=== PATIENT | female | born 1985 | race Caucasian/White ===

== ENCOUNTER → 2016-11-27 | Outpatient (CLI) | payer MEDICAID ==
[~2016-11-27] MED LIST: PRENATAL 1+1)(P1 TAB PO
== END | disposition disaster alternative care site (69) ==
LOC: GRAD 08:17
DX: Z34.82 Encounter for supervision of other normal pregnancy, second trimester (principal); Z3A.17 17 weeks gestation of pregnancy

== ENCOUNTER 2017-02-16 02:02 | Outpatient (CLI) | payer MEDICAID ==
[~2017-02-16] VITALS: Ht 175.3 cm; Wt 78.2 kg
--- NOTE | ~2017-02-16 | PN ---
PATIENT'S NAME: RICKY CASE [facility] AGE: 31 Y [address] ROOM: [place] [id number] LOCATION: GO ADMIT DATE: 02/16/2017 Progress Notes DISCHARGE DATE: 02/16/2017 FAMILY PHYSICIAN: Blanca Veras MD ATTENDING PHYSICIAN: Beba Hargrove DATE OF SERVICE: 02/16/2017 Ricky Case is a 31-year-old female, G2, P2. She is 28 plus 6 weeks. Her thus far has been complicated by placenta previa. Her blood type is A positive. Ricky came in about 2 a.m. on February 16, 2017, for a moderate amount of bleeding after having sex with her . She describes the amount of blood as more than spotting, but no clots. Her bleeding has currently stopped. She has not had any contractions or pain and otherwise is feeling well. Mother's vitals are all normal. On the monitor, she is noted to have a moderate variability with a baseline rate of about 140, positive accels, reassuring strip. A sterile speculum exam was done. A small amount of blood was visualized in the vaginal canal. The cervical os was closed; however, a small amount of blood was also noted at the cervical os. Had the patient bare down, and no blood actively came out of the os. Discussed with the patient option of going home at this time as her bleeding is not active and being scheduled for an ultrasound in the morning versus staying in the hospital here until morning and having an ultrasound done in the morning. She elected to go home as she has 2 twins to take care of tomorrow, and she would like to get some sleep. FARZANEH PIZARRO MD FOR MD JABARI LEA/agatha /[id number] d: 02/16/17 1414 t: 03/08/17 2247, PROGRESS NOTES
[2017-02-16] MEDS ORDERED: PRENATAL 1+1)(P1 TAB PO (02:46)
== END 2017-02-16 04:25 | disposition disaster alternative care site (69) ==
LOC: GOBM 02:02 → GOBS 02:02 → GOBM 04:25
DX: O99.89 Other specified diseases and conditions complicating pregnancy, childbirth and the puerperium (principal); N93.0 Postcoital and contact bleeding; F17.200 Nicotine dependence, unspecified, uncomplicated; Z3A.28 28 weeks gestation of pregnancy
CPT/HCPCS: G0463